=== PATIENT | female | born 1935 | race Caucasian/White ===

== ENCOUNTER → 2022-04-13 12:00 | Outpatient (CLI) | payer MEDICARE, SELFPAY ==
--- NOTE | 2022-04-13 | DI.ECHO.S_ITS ---
[facility] +---------+ : : [address] : [address] : : : : [id number] : : : : Phone: [phone]+ Echocardiogram Report + + :Name: MANDA MANN Study Date: 04/13/2022 Height: 60 in : :[facility] ReadingLocation: Weight: 131 lb : : Gender: Female BSA: 1.6 m2 : :: 1935 Age: 86 yrs BP: 153/95 mmHg: :Reason For Study: SOB : :Ordering Physician: BELA, : :ALEX Rene Performed By: Benitez Howell : :Referring: ALEX CRAMER : + + Interpretation Summary Normal sinus rhythm. Normal LV size, wall thickness, wall motion and LV systolic function. EF is 60-65%. Normal chamber sizes. No valvular abnormalities. No prior study available for comparison. Procedure: A two-dimensional transthoracic echocardiogram with color flow and Doppler was performed. The study quality was technically adequate. There is no prior echocardiogram noted for this patient. The patient was in normal sinus rhythm during the exam. Left Ventricle: The left ventricle is normal in size and wall thickness. Left ventricular systolic function is normal. The ejection fraction is estimated to be 60-65%. There are no focal wall motion abnormalities. Diastolic function could not be accurately assessed due to unobtainable data. Right Ventricle: The right ventricle is normal in size and function. Atria: Both atria are normal in size. The interatrial septum grossly appears intact with no obvious evidence for an atrial septal defect. Mitral Valve: The mitral valve is normal in structure and function. There is mild mitral regurgitation. Aortic Valve: There is mild aortic valve sclerosis. There is mild aortic regurgitation. Tricuspid Valve: The tricuspid valve is normal in structure and function. No tricuspid regurgitation. Pulmonary artery pressures cannot be estimated because of the lack of a measurable TR jet velocity. Pulmonic Valve: The pulmonic valve is normal in structure and function. There is a trace or physiologic amount of pulmonic regurgitation. Great Vessels: The aortic root is normal size. The dimensions of the ascending aorta are normal. The IVC is of normal diameter and collapses greater than 50% with a sniff. This suggests a low right atrial pressure of 3 mm Hg. Pericardium/ Pleura There is no pericardial effusion. There is no pleural effusion. MMode/2D Measurements & Calculations LVIDd: 4.6 cm LVOT diam: 2.0 cm LVIDs: 2.8 cm Ao root diam: 3.5 cm FS: 38.4 % asc Aorta Diam: 3.1 cm IVSd: 0.73 cm LVPWd: 0.67 cm LV funes. diameter/BSA (cm/m^2): 2.9 LV sys. diameter/BSA (cm/m^2): 1.8 LA A2 area: 17.4 cm2 RA long axis: 4.4 cm LA A4 area: 15.8 cm2 RA area: 14.1 cm2 LA length (vol): 4.9 cm RA vol: 38.4 ml LA vol: 47.5 ml RA : 24.6 ml/m2 LA vol index: 30.4 ml/m2 TAPSE: 1.9 cm Doppler Measurements & Calculations Ao V2 max: 118.0 cm/sec LVOT Max Devendra: 104.8 cm/sec Ao V2 mean: 83.0 cm/sec LV V1 max P.4 mmHg Ao max P.6 mmHg LV V1 VTI: 22.4 cm Ao mean P.1 mmHg ISABELLA(I,D): 2.8 cm2 Ao V2 VTI: 25.3 cm ISABELLA(V,D): 2.8 cm2 sev ratio: 0.89 ISABELLA indexed to BSA (cm^2/m^2): 1.8 AI P1/2t: 600.6 msec AI dec slope: 184.9 cm/sec2 MV E max devendra: 60.1 cm/sec SV(LVOT): 69.9 ml MV A max devendra: 91.4 cm/sec MV E/A: 0.66 Med Peak E' Devendra: 5.1 cm/sec E/E' med: 11.7 Lat Peak E' Devendra: 4.8 cm/sec E/E' lat: 12.5 E/e' average: 12.1 MV dec time: 0.24 sec Electronically signed by: Tatyana Jimenez M.D. on Reading Physician:04/14/2022 09:01 AM
== END ==
PROVIDERS: Family Provider Nurse Practitioner; PCP Nurse Practitioner Family; Referring Provider Nurse Practitioner Family; Visit Provider Nurse Practitioner Family
DX: I08.0 Rheumatic disorders of both mitral and aortic valves (principal); I50.22 Chronic systolic (congestive) heart failure; R06.02 Shortness of breath
CPT/HCPCS: 93306